=== PATIENT | male | born 1990 | race Caucasian/White ===

== ENCOUNTER 2021-08-06 06:50 | Emergency (ER) | payer OTHER ==
[2021-08-06 06:57] VITALS: TEMP 97.8
[2021-08-06] MEDS ORDERED: IBUPROFEN 600 MG TAB PO STA (07:18)
--- NOTE | 2021-08-06 07:53 | XR ---
EXAMINATION TYPE: XR Hip LT and AP Pelvis DATE OF EXAM: 08/06/2021 COMPARISON: NONE HISTORY: Pain TECHNIQUE: AP view of the pelvis is obtained. Two views of the left hip are obtained. Total of 5 estefanía ges FINDINGS: There is no acute fracture/dislocation evident in the pelvis. The hip and sacroiliac join ts appear symmetric and unremarkable. The overlying soft tissue appears unremarkable. There is some hypertrophic change present at the lateral aspects of the acetabulum bilaterally, also along the femo ral heads there is some prominent remodeling. Two views of left hip show no acute fracture or dislocation. No focal lytic or sclerotic lesion seen in the proximal left femur. The overlying soft tissue is unremarkable. IMPRESSION: There is no acute fracture or dislocation in the pelvis or left hip. Correlate for possi ble acetabular femoral impingement, osteoarthritic changes.
--- NOTE | 2021-08-06 08:31 | ED ---
General Adult HPI - General Chief complaint: Extremity Injury, Lower Stated complaint: hip pain Time Seen by Provider: 08/06/21 07:00 Source: patient Mode of arrival: wheelchair - History of Present Illness Initial comments: 31-year-old male presents to the emergency room for left hip pain. Patient was skating while playing hockey. States that his left leg went out and when he went to corrected something pulled in his left hip. Patient states the external part of his left hip has been hurting him. It is painful to walk on but he can do so. Patient states he is here for an MRI. He denies falling directly on the hip.Patient has no other complaints at this time including shortness of breath, chest pain, abdominal pain, nausea or vomiting, headache, or visual changes. - Related Data Home Medications Medication Instructions Recorded Confirmed Dextroamphetamine/Amphetamine 30 mg PO BID 04/15/14 11/27/15 [Adderall] Previous Rx's Medication Instructions Recorded Cephalexin [Keflex] 500 mg PO Q6HR #40 cap 11/27/15 Ibuprofen [Motrin] 600 mg PO Q6HR PRN #20 tab 08/06/21 Allergies Allergy/AdvReac Type Severity Reaction Status Date / Time No Known Allergies Allergy Verified 08/06/21 06:57 Review of Systems ROS Statement: Those systems with pertinent positive or pertinent negative responses have been documented in the HPI. ROS Other: All systems not noted in ROS Statement are negative. Past Medical History Past Medical History: No Reported History History of Any Multi-Drug Resistant Organisms: None Reported Past Surgical History: No Surgical Hx Reported Past Psychological History: No Psychological Hx Reported Smoking Status: Never smoker Past Alcohol Use History: Occasional Past Drug Use History: Marijuana General Exam General appearance: alert, in no apparent distress Head exam: Present: atraumatic Eye exam: Present: normal appearance, PERRL, EOMI. Absent: scleral icterus, conjunctival injection ENT exam: Present: normal exam, mucous membranes moist Neck exam: Present: normal inspection, full ROM. Absent: tenderness Respiratory exam: Present: normal lung sounds bilaterally. Absent: respiratory distress, wheezes Cardiovascular Exam: Present: regular rate, normal rhythm, normal heart sounds GI/Abdominal exam: Present: soft, normal bowel sounds. Absent: distended, tenderness Extremities exam: Present: tenderness (Tenderness to the lateral aspect of the left hip), normal capillary refill (Capillary refill less than 2 seconds, DP pulse 2+ LLE). Absent: full ROM (Patient has 60 flexion of the left hip, extension to neutral position), other (No evidence of external signs of trauma of the left hip) Neurological exam: Present: alert Course Vital Signs 08/06/21 06:54 Temperature 97.8 F Pulse Rate 85 Respiratory 18 Rate Blood Pressure 108/76 O2 Sat by Pulse 96 Oximetry Medical Decision Making - Medical Decision Making X-ray shows no acute fracture or dislocation. Correlate for acetabular femoral impingement. At this time patient can be discharged home with anti-in flammatories and orthopedic follow-up. Will return here for any worsening symptoms. Disposition Clinical Impression: Hip pain, left Disposition: HOME SELF-CARE Condition: Good Instructions (If sedation given, give patient instructions): Hip Pain (ED) Additional Instructions: Please take Motrin and Tylenol for pain. Ice the hip. Please follow-up with your doctor or orthopedics in one to 2 days. Return to the emergency room for any worsening symptoms. Prescriptions: Ibuprofen [Motrin] 600 mg PO Q6HR PRN #20 tab PRN Reason: Pain Is patient prescribed a controlled substance at d/c from ED?: No Referrals: Aristeo Vanessa MD [Primary Care Provider] - 1-2 days Anders Sears MD [STAFF PHYSICIAN] - 1-2 days Time of Disposition: 08:30
[2021-08-06 08:50] VITALS: BP 104/66; PULSE 78; RESP 20
== END 2021-08-06 08:50 | disposition home or self-care (01) ==
LOC: EC 06:50
DX: M25.552 Pain in left hip (principal)
CPT/HCPCS: 73502; 99283

== ENCOUNTER 2021-09-30 07:10 | Emergency (ER) | payer OTHER ==
--- NOTE | 2021-09-30 08:02 | ED ---
General Adult HPI - General Chief complaint: Syncope Stated complaint: fever/aches Time Seen by Provider: 09/30/21 07:13 Source: patient, EMS, RN notes reviewed Mode of arrival: EMS Limitations: no limitations - History of Present Illness Initial comments: 31-year-old male presents to the emergency room for chief complaint syncope. He went to stand up and passed out. Patient states that he hasn't felt well for the past day or so. States he has been having symptoms of cough and headache as well as fevers. Patient states his girlfriend is positive for COVID-19. Patient states he feels much better at this time thinks he maybe just was a little dehydrated. - Related Data Home Medications Medication Instructions Recorded Confirmed No Known Home Medications 09/30/21 09/30/21 Allergies Allergy/AdvReac Type Severity Reaction Status Date / Time No Known Allergies Allergy Verified 09/30/21 09:17 Review of Systems ROS Statement: Those systems with pertinent positive or pertinent negative responses have been documented in the HPI. ROS Other: All systems not noted in ROS Statement are negative. Past Medical History Past Medical History: No Reported History History of Any Multi-Drug Resistant Organisms: None Reported Past Surgical History: No Surgical Hx Reported Past Psychological History: No Psychological Hx Reported Smoking Status: Never smoker Past Alcohol Use History: Occasional Past Drug Use History: Marijuana General Exam Limitations: no limitations General appearance: alert, in no apparent distress Head exam: Present: atraumatic Eye exam: Present: normal appearance, PERRL, EOMI. Absent: scleral icterus, conjunctival injection ENT exam: Present: normal exam, mucous membranes moist Neck exam: Present: normal inspection, full ROM. Absent: tenderness Respiratory exam: Present: normal lung sounds bilaterally. Absent: respiratory distress, wheezes Cardiovascular Exam: Present: regular rate, normal rhythm, normal heart sounds GI/Abdominal exam: Present: soft, normal bowel sounds. Absent: distended, tenderness Neurological exam: Present: alert Course Vital Signs 09/30/21 09/30/21 09/30/21 07:21 09:00 09:11 Temperature 101 F H 100.3 F H Pulse Rate 74 64 73 Respiratory 18 18 19 Rate Blood Pressure 127/58 121/60 122/67 O2 Sat by Pulse 96 97 97 Oximetry 09/30/21 09/30/21 09/30/21 09:15 09:30 09:45 Temperature Pulse Rate 73 75 64 Respiratory 19 19 18 Rate Blood Pressure 126/71 93/73 105/74 O2 Sat by Pulse 97 96 98 Oximetry 09/30/21 09/30/21 09/30/21 10:00 10:15 10:30 Temperature Pulse Rate 61 70 63 Respiratory 19 18 19 Rate Blood Pressure 113/56 100/61 116/53 O2 Sat by Pulse 97 97 97 Oximetry 09/30/21 10:53 Temperature 98.7 F Pulse Rate Respiratory Rate Blood Pressure O2 Sat by Pulse Oximetry EKG Findings - EKG Comments: EKG Findings:: Normal sinus rhythm, ventricular rate 74, IL interval 172, QTC 419 Medical Decision Making - Medical Decision Making Vitals are stable. Patient presents febrile with a temperature of 101 given Motrin and Tylenol. Patient is well-appearing. CBC and CMP are unremarkable. 19 was detected. Patient was given antibody infusion as well as fluids. Suspect patient's episode of syncope was orthostatic in nature given this happened after he stood up. Patient will be decision to follow-up with primary care. Will return here for any worsening symptoms. - Lab Data Result diagrams: 09/30/21 08:15 09/30/21 08:15 Lab Results 09/30/21 09/30/21 09/30/21 Range/Units 08:15 08:15 08:20 WBC 6.6 (3.8-10.6) k/uL RBC 4.31 (4.30-5.90) m/uL Hgb 13.6 (13.0-17.5) gm/dL Hct 40.0 (39.0-53.0) % MCV 92.8 (80.0-100.0) fL MCH 31.5 (25.0-35.0) pg MCHC 33.9 (31.0-37.0) g/dL RDW 12.2 (11.5-15.5) % Plt Count 147 L (150-450) k/uL MPV 8.2 Neutrophils % 86 % Lymphocytes % 5 % Monocytes % 7 % Eosinophils % 1 % Basophils % 0 % Neutrophils # 5.6 (1.3-7.7) k/uL Lymphocytes # 0.3 L (1.0-4.8) k/uL Monocytes # 0.4 (0-1.0) k/uL Eosinophils # 0.1 (0-0.7) k/uL Basophils # 0.0 (0-0.2) k/uL Sodium 133 L (137-145) mmol/L Potassium 4.4 (3.5-5.1) mmol/L Chloride 105 (98-107) mmol/L Carbon Dioxide 23 (22-30) mmol/L Anion Gap 5 mmol/L BUN 17 (9-20) mg/dL Creatinine 1.21 (0.66-1.25) mg/dL Est GFR (CKD-EPI)AfAm >90 (>60 ml/min/1.73 sqM) Est GFR (CKD-EPI)NonAf 79 (>60 ml/min/1.73 sqM) Glucose 114 H (74-99) mg/dL Calcium 8.7 (8.4-10.2) mg/dL Magnesium 1.9 (1.6-2.3) mg/dL Total Bilirubin 0.5 (0.2-1.3) mg/dL AST 36 (17-59) U/L ALT 33 (4-49) U/L Alkaline Phosphatase 62 (38-126) U/L Total Protein 6.9 (6.3-8.2) g/dL Albumin 3.9 (3.5-5.0) g/dL Coronavirus (PCR) Detected A (Not Detectd) Disposition Clinical Impression: COVID-19, Syncope Disposition: HOME SELF-CARE Condition: Good Instructions (If sedation given, give patient instructions): Coronavirus Disease 2019 (COVID-19) Additional Instructions: Take vitamin C, D, and zinc [id number]. Follow-up with your doctor. Return to the emergency room for any worsening symptoms. Is patient prescribed a controlled substance at d/c from ED?: No Referrals: Aristeo Vanessa MD [Primary Care Provider] - 1-2 days Time of Disposition: 09:07
[2021-09-30] MEDS: IBUPROFEN 600 MG TAB PO STA (08:13)
[2021-09-30] MEDS: SODIUM CHLORIDE 0.9% 1,000 ML IV STA (08:13)
[2021-09-30] MEDS: ACETAMINOPHEN TAB 500 MG TAB PO STA (08:13)
[2021-09-30 08:23] LABS: Basophils % (A) 0 %; Eosinophils # (A) 0.1 k/uL (0-0.7); Eosinophils % (A) 1 %; HGB 13.6 gm/dL (13.0-17.5); Lymphocytes # (A) 0.3 k/uL (1.0-4.8); Lymphocytes % (A) 5 %; MCH 31.5 pg (25.0-35.0); MCHC 33.9 g/dL (31.0-37.0); MCV 92.8 fL (80.0-100.0); Mean Platelet Volume 8.2; Monocytes # (A) 0.4 k/uL (0-1.0); Monocytes % (A) 7 %; Neutrophils # (A) 5.6 k/uL (1.3-7.7); Neutrophils % (A) 86 %; Platelet Count 147 k/uL (150-450); RBC 4.31 m/uL (4.30-5.90); RDW 12.2 % (11.5-15.5); WBC 6.6 k/uL (3.8-10.6)
--- NOTE | 2021-09-30 08:34 | XR ---
EXAMINATION TYPE: XR chest 1V portable DATE OF EXAM: 09/30/2021 COMPARISON: NONE HISTORY: Syncope and fever. TECHNIQUE: Single portable frontal view of the chest is obtained. FINDINGS: There is no suspicious focal air space opacity, pleural effusion, or pneumothorax seen. T he cardiac silhouette size is within normal limits. The osseous structures are intact. Overlying EK G leads. IMPRESSION: No acute process.
[2021-09-30 08:48] LABS: ALT 33 U/L (4-49); AST 36 U/L (17-59); African American GFR (CKD) >90 (>60 ml/min/1.73 sqM); Albumin 3.9 g/dL (3.5-5.0); Alkaline Phosphatase 62 U/L (38-126); Anion Gap 5 mmol/L; Blood Urea Nitrogen 17 mg/dL (9-20); Calcium 8.7 mg/dL (8.4-10.2); Carbon Dioxide 23 mmol/L (22-30); Chloride 105 mmol/L (98-107); Glucose 114 mg/dL (74-99); Magnesium 1.9 mg/dL (1.6-2.3); Non-African American GFR(CKD) 79 (>60 ml/min/1.73 sqM); Potassium 4.4 mmol/L (3.5-5.1); Sodium 133 mmol/L (137-145); Total Bilirubin 0.5 mg/dL (0.2-1.3); Total Protein 6.9 g/dL (6.3-8.2)
[2021-09-30] MEDS: BAMLANIVIMAB (EUA) 700 MG, ETESEVIMAB (EUA) 1,400 MG in SODIUM CHLORIDE 0.9% 100 ML IVPB ONE (09:08)
[2021-09-30] MEDS: SODIUM CHLORIDE 0.9% 50 ML IVPB ONE (09:09)
[2021-09-30] MEDS: cefTRIAXone IN SWFI 1,000 MG/10 ML SYRINGE IVP STA (10:01)
[2021-09-30 10:42] VITALS: BP 116/53; PULSE 63; RESP 19
[2021-09-30 10:54] VITALS: TEMP 98.7
== END 2021-09-30 10:54 | disposition home or self-care (01) ==
LOC: EC 07:10
DX: U07.1 COVID-19 (principal); R55 Syncope and collapse
CPT/HCPCS: 36415; 93005; 80053; 83735; 85025; 87635; 71045; 99284; 96360; J3490

== ENCOUNTER 2023-11-25 07:45 | Emergency (ER) | payer OTHER ==
[2023-11-25] MEDS: BENZONATATE 100 MG CAP PO STA (08:12)
--- NOTE | 2023-11-25 08:12 | ED ---
URI HPI - General Chief Complaint: Upper Respiratory Infection Stated Complaint: cough,fever Time Seen by Provider: 11/25/23 07:58 Source: patient, RN notes reviewed Mode of arrival: ambulatory Limitations: no limitations - History of Present Illness Initial Comments: This is a 33-year-old male who presents to the emergency department for coughing and congestion. Symptoms started 3 days ago. The cough was largely nonproductive to begin with, and is now starting to become wet. However, he is only producing clear phlegm. He has associated body aches, sore throat, nausea, and is now getting minor shortness of breath. Denies any chest pain. Denies any history of asthma or other respiratory illnesses. He has been around friends who tested positive for the flu. MD Complaint: cough, sore throat - Related Data Previous Rx's Medication Instructions Recorded Benzonatate [Tessalon Perle] 200 mg PO TID PRN #30 capsule 11/25/23 Lidocaine Viscous 2% [Xylocaine 5 - 10 ml PO Q4-6H PRN #100 ml 11/25/23 Viscous] Allergies Allergy/AdvReac Type Severity Reaction Status Date / Time No Known Allergies Allergy Verified 11/25/23 07:58 Review of Systems ROS Statement: Those systems with pertinent positive or pertinent negative responses have been documented in the HPI. ROS Other: All systems not noted in ROS Statement are negative. Past Medical History Past Medical History: No Reported History History of Any Multi-Drug Resistant Organisms: None Reported Past Surgical History: No Surgical Hx Reported Past Psychological History: No Psychological Hx Reported Smoking Status: Never smoker Past Alcohol Use History: Occasional Past Drug Use History: Marijuana General Exam Limitations: no limitations General appearance: alert, in no apparent distress Head exam: Present: atraumatic, normocephalic, normal inspection ENT exam: Present: normal oropharynx, mucous membranes moist, TM's normal bilaterally, normal external ear exam Respiratory exam: Present: normal lung sounds bilaterally. Absent: respiratory distress, wheezes, rales, rhonchi, stridor Cardiovascular Exam: Present: regular rate, normal rhythm, normal heart sounds. Absent: systolic murmur, diastolic murmur, rubs, gallop, clicks Neurological exam: Present: alert, oriented X3, CN II-XII intact Psychiatric exam: Present: normal affect, normal mood Skin exam: Present: warm, dry, intact, normal color. Absent: rash Course Vital Signs 11/25/23 11/25/23 11/25/23 07:56 08:09 08:32 Temperature 99 F 100.2 F H Pulse Rate 95 80 Respiratory 20 18 18 Rate Blood Pressure 120/76 O2 Sat by Pulse 99 Oximetry 11/25/23 11/25/23 09:01 09:10 Temperature Pulse Rate 80 84 Respiratory Rate Blood Pressure O2 Sat by Pulse Oximetry Medical Decision Making - Medical Decision Making This is a 33-year-old male who presents to the emergency department for coughing and congestion. Was pt. sent in by a medical professional or institution? @ -No Did you speak to anyone other than the patient for history? @ -No Did you review nursing and triage notes? @ -Yes, and I agree, it is accurate with regards to the patient's symptoms. Were old charts reviewed? @ -No Differential Diagnosis? @ -Differential Cough: Influenza, Covid, RSV, croup, allergic rhinitis, GERD, pneumonia, bronchitis, COPD, viral pharyngitis, streptococcal pharyngitis, this is not meant to be an all-inclusive list. EKG interpreted by me (3pts min.)? @ -Not obtained X-rays interpreted by me (1pt min.)? @ -Chest x-ray obtained, my interpretation identifies no localized consolidations or infiltrates. CT interpreted by me (1pt min.)? @ -Not obtained U/S interpreted by me (1pt. min.)? @ -Not obtained What testing was considered but not performed? (CT, X-rays, U/S, labs)? Why? @ -None What meds were considered but not given? Why? @ -None Did you discuss the management of the patient with other professionals? @ -No Did you reconcile home meds? @ -No Was smoking cessation discussed for >3mins.? @ -I discussed smoking cessation for greater than 3 minutes. The risk of smoking were discussed with the patient including but not limited to risks of cancer, stroke, coronary artery disease and COPD. Also discussed with patient were multiple methods of quitting smoking. Lastly we discussed the financial cost of smoking. Was critical care preformed (if so, how long)? @ -No Were there social determinants of health that impacted care today? How? (Homelessness, low income, unemployed, alcoholism, drug addiction, transportation, low edu. Level, literacy, decrease access to med. care, detention, rehab)? @ -No Was there de-escalation of care discussed even if they declined? (Discuss DNR or withdrawal of care, Hospice)? @ -No What co-morbidities impacted this encounter? (DM, HTN, Smoking, COPD, CAD, Cancer, CVA, Hep., AIDS, mental health diagnosis, sleep apnea, morbid obesity)? @ -Smoking Was patient admitted / discharged? @ -Discharged. Patient positive for influenza A. COVID and RSV testing were negative. Chest x-ray reveals no acute process. Patient requested IV fluids due to feeling dehydrated and he was given a 1L bolus of IV fluids along with Tessalon perles, Tylenol, and a duoneb breathing treatment. He did feel that the medications improved his symptoms. Discussed with the patient that treatment largely consists of symptomatic management. He was given a prescription for Tessalon Perles and viscous lidocaine for management of the cough and sore throat, which he found the most bothersome. Otherwise advised getting plenty of rest and remaining well-hydrated. Patient discharged home in stable condition. Undiagnosed new problem with uncertain prognosis? @ -None Drug Therapy requiring intensive monitoring for toxicity (Heparin, Nitro, Insulin, Cardizem)? @ -None Were any procedures done? @ -None Diagnosis/symptom? @ -Influenza A Acute, or Chronic, or Acute on Chronic? @ -Acute Uncomplicated (without systemic symptoms) or Complicated (systemic symptoms)? @ -Uncomplicated Side effects of treatment? @ -None Exacerbation, Progression, or Severe Exacerbation] @ -Not applicable Poses a threat to life or bodily function? @ -No Return precautions reviewed in depth, the patient is instructed to return to the emergency department with any new, worsening, or concerning symptoms. Patient verbalized understanding. This case was discussed in detail with the attending ED physician, Dr. Yan. Presentation, findings, and treatment plan discussed in detail as well. - Lab Data Lab Results 11/25/23 Range/Units 08:04 Influenza Type A (PCR) Detected A (Not Detectd) Influenza Type B (PCR) Not Detected (Not Detectd) RSV (PCR) Not Detected (Not Detectd) SARS-CoV-2 (PCR) Not Detected (Not Detectd) - Radiology Data Radiology results: report reviewed, image reviewed Disposition Clinical Impression: Nicotine dependence, Influenza A Disposition: HOME SELF-CARE Instructions (If sedation given, give patient instructions): Influenza (ED) Additional Instructions: Return to the emergency department with any new, worsening, or concerning symptoms. You can take the Tessalon Perles up to every 8 hours as needed for coughing. You can use the viscous lidocaine every 4-6 hours to help with the sore throat. Alternate with ibuprofen and Tylenol as needed for fevers and body aches. Make sure that you remain well-hydrated and get plenty of rest. Follow up with your primary care provider in 1-2 days. Prescriptions: Benzonatate [Tessalon Perle] 200 mg PO TID PRN #30 capsule PRN Reason: Cough Lidocaine Viscous 2% [Xylocaine Viscous] 5 - 10 ml PO Q4-6H PRN #100 ml PRN Reason: Sore Throat Is patient prescribed a controlled substance at d/c from ED?: No Referrals: Aristeo Vanessa MD [Primary Care Provider] - 1-2 days Time of Disposition: 09:27
[2023-11-25 08:34] VITALS: RESP 18
[2023-11-25] MEDS: ACETAMINOPHEN TAB 500 MG TAB PO STA (08:35)
[2023-11-25] MEDS: SODIUM CHLORIDE 0.9% 1,000 ML IV STA (08:36)
--- NOTE | 2023-11-25 08:45 | XR ---
EXAMINATION TYPE: XR chest 2V DATE OF EXAM: 11/25/2023 8:32 AM CLINICAL INDICATION:Male, 33 years old with history of Cough, JOSE; COMPARISON: Chest radiographs from 09/30/2021 TECHNIQUE: XR chest 2V Frontal and lateral views of the chest. FINDINGS: Lungs/Pleura: There is no evidence of pleural effusion, focal consolidation, or pneumothorax. Pulmonary vascularity: Unremarkable. Heart/mediastinum: Cardiomediastinal silhouette is unremarkable. Musculoskeletal: No acute osseous pathology. IMPRESSION: No acute cardiopulmonary disease/process.
[2023-11-25] MEDS: IPRATROPIUM-ALBUTEROL 3 ML NEB INHALATION STA (09:01)
[2023-11-25] MEDS: DEXAMETHASONE SOD PHOSPHATE 10 MG/ML 1 ML VIAL IM STA (09:31)
[2023-11-25] MEDS: LIDOCAINE VISCOUS 2% 15 ML CUP PO ONE (09:33)
[2023-11-25] MEDS: ONDANSETRON 4 MG ODT STARTER PACK 2 TAB BTL PO STA (09:33)
[2023-11-25 10:04] VITALS: BP 136/80; PULSE 81; TEMP 99.3
== END 2023-11-25 09:38 | disposition home or self-care (01) ==
LOC: EC 07:45
DX: J10.1 Influenza due to other identified influenza virus with other respiratory manifestations (principal); F17.210 Nicotine dependence, cigarettes, uncomplicated; F12.90 Cannabis use, unspecified, uncomplicated; Z20.822 Contact with and (suspected) exposure to COVID-19
CPT/HCPCS: 94640; 87636; 71046; 99406; 99284; 96360; 96372; J1100; S0119

== ENCOUNTER 2024-04-14 17:28 | Emergency (ER) | payer OTHER ==
[2024-04-14 17:37] VITALS: RESP 20
--- NOTE | 2024-04-14 17:53 | ED ---
Wound/Laceration HPI - General Chief Complaint: Wound/Laceration Stated Complaint: R hand lac Time Seen by Provider: 04/14/24 17:51 Source: patient, RN notes reviewed Mode of arrival: ambulatory Limitations: no limitations - History of Present Illness Initial Comments: 33-year-old male presenting with laceration to right hand 1 hour ago. States he was sliced by a outsewer pipe. Denies blood thinners. Denies other injuries. Last tetanus is unknown. - Related Data Previous Rx's Medication Instructions Recorded Benzonatate [Tessalon Perle] 200 mg PO TID PRN #30 capsule 11/25/23 Lidocaine Viscous 2% [Xylocaine 5 - 10 ml PO Q4-6H PRN #100 ml 11/25/23 Viscous] Cephalexin [Keflex] 500 mg PO Q12HR 5 Days #10 cap 04/14/24 Allergies Allergy/AdvReac Type Severity Reaction Status Date / Time No Known Allergies Allergy Verified 11/25/23 07:58 Review of Systems ROS Statement: Those systems with pertinent positive or pertinent negative responses have been documented in the HPI. ROS Other: All systems not noted in ROS Statement are negative. Past Medical History Past Medical History: No Reported History History of Any Multi-Drug Resistant Organisms: None Reported Past Surgical History: No Surgical Hx Reported Past Psychological History: No Psychological Hx Reported Smoking Status: Never smoker Past Alcohol Use History: Occasional Past Drug Use History: Marijuana General Exam Limitations: no limitations General appearance: alert, in no apparent distress Head exam: Present: atraumatic, normocephalic, normal inspection Right Forearm Wrist exam: Present: normal inspection, full ROM. Absent: tenderness, swelling Hand Wrist exam: Present: full ROM, laceration (3 cm superficial, linear laceration present on dorsal aspect of right hand. No active bleeding. Full range of motion of all digits, cap refill less than 2 seconds, sensation intact.). Absent: tenderness, swelling Vascular: Absent: vascular compromise Course Vital Signs 04/14/24 04/14/24 17:35 18:59 Temperature 98 F 98.1 F Pulse Rate 88 80 Respiratory 20 20 Rate Blood Pressure 100/74 101/76 O2 Sat by Pulse 98 98 Oximetry Procedures - Laceration Laceration #1 Consent Obtained: verbal consent Indication: laceration Site: upper extremity Size (cm): 3 Description: linear Depth: simple, single layer Sedation/Analgesia: none Pre-repair: wound explored, irrigated extensively, deep structures intact Patient Tolerated Procedure: well, no complications Additional Comments: Skin adhesive and Steri-Strips applied to achieve good alignment and homeostasis. Neurovascularly intact status post procedure Medical Decision Making - Medical Decision Making Was pt. sent in by a medical professional or institution (, [facility], HOUSEKEEPING DEPARTMENT WORKER, urgent care, hospital, or shelter...) When possible be specific @ -No Did you speak to anyone other than the patient for history (EMS, parent, family, police, friend...)? What history was obtained from this source @ -No Did you review nursing and triage notes (agree or disagree)? Why? @ -I reviewed and agree with nursing and triage notes Were old charts reviewed (outside hosp., previous admission, EMS record, old EKG, old radiological studies, urgent care reports/EKG's, shelter records)? Report findings @ -No old charts were reviewed Differential Diagnosis (chest pain, altered mental status, abdominal pain women, abdominal pain men, vaginal bleeding, weakness, fever, dyspnea, syncope, headache, dizziness, GI bleed, back pain, seizure, CVA, palpatations, mental health, musculoskeletal)? @ -Differential Musculoskeletal Muscular strain, contusion, ligament sprain, fracture, arthritis, septic arthritis, bursitis, cellulitis, muscle spasm, nerve compression, DVT, arterial occlusion, herpes zoster, electrolyte abnormality, tumor.... This is not meant to be in all inclusive list EKG interpreted by me (3pts min.). @ -None X-rays interpreted by me (1pt min.). @ -None done CT interpreted by me (1pt min.). @ -None done U/S interpreted by me (1pt. min.). @ -None done What testing was considered but not performed or refused? (CT, X-rays, U/S, labs)? Why? @ -Imaging considered but not performed due to low concern for fracture What meds were considered but not given or refused? Why? @ -None Did you discuss the management of the patient with other professionals (professionals i.e. [facility]IL[facility] Thomas, HOUSEKEEPING DEPARTMENT WORKER, lab, RT, psych nurse, high school social studies tutor, bunch maker, teacher, global chief creative officer, social work case manager)? Give summary @ -No Was smoking cessation discussed for >3mins.? @ -No Was critical care preformed (if so, how long)? @ -No Were there social determinants of health that impacted care today? How? (Homeles sness, low income, unemployed, alcoholism, drug addiction, transportation, low edu. Level, literacy, decrease access to med. care, [facility], rehab)? @ -No Was there de-escalation of care discussed even if they declined (Discuss DNR or withdrawal of care, Hospice)? DNR status @ -No What co-morbidities impacted this encounter? (DM, HTN, Smoking, COPD, CAD, Cancer, CVA, ARF, Chemo, Hep., AIDS, mental health diagnosis, sleep apnea, morbid obesity)? @ -None Was patient admitted / discharged? Hospital course, mention meds given and route, prescriptions, significant lab abnormalities, going to OR and other pertinent info. @ -Patient was discharged. Patient was seen and evaluated for right hand laceration prior to arrival. Patient is neurovascularly intact. Tetanus was updated. Wound was thoroughly irrigated and skin adhesive and Steri-Strips were applied. Neurovascularly intact status post procedure. Wound care was discussed. Strict return parameters discussed and patient is agreeable to plan. Prescribed Keflex for antibacterial prophylaxis. Case was discussed with my attending Dr. Yan. Patient discharged in stable condition. Undiagnosed new problem with uncertain prognosis? @ -No Drug Therapy requiring intensive monitoring for toxicity (Heparin, Nitro, Insulin, Cardizem)? @ -No Were any procedures done? @ -Skin adhesive and Steri-Strips to laceration Diagnosis/symptom? @ -Right hand laceration Acute, or Chronic, or Acute on Chronic? @ -Acute Uncomplicated (without systemic symptoms) or Complicated (systemic symptoms)? @ -Uncomplicated Side effects of treatment? @ -No Exacerbation, Progression, or Severe Exacerbation? @ -No Poses a threat to life or bodily function? How? (Chest pain, [place], MA, pneumonia, PE, COPD, DKA, ARF, appy, cholecystitis, CVA, Diverticulitis, Homicidal, Suicidal, threat to staff... and all critical care pts) @ -No Disposition Clinical Impression: Laceration of right hand Disposition: HOME SELF-CARE Condition: Stable Instructions (If sedation given, give patient instructions): Laceration (ED) Additional Instructions: Please return to the Emergency Department if symptoms worsen or any other concerns. Prescriptions: Cephalexin [Keflex] 500 mg PO Q12HR 5 Days #10 cap Is patient prescribed a controlled substance at d/c from ED?: No Referrals: Aristeo Vanessa MD [Primary Care Provider] - 1-2 days Time of Disposition: 18:53
[2024-04-14] MEDS: DIPH,PERTUS(ACELL)TETVAC-LF 0.5 ML VIAL IM ONE (18:11)
[2024-04-14 19:01] VITALS: BP 101/76; PULSE 80; TEMP 98.1
== END 2024-04-14 19:14 | disposition home or self-care (01) ==
LOC: EC 17:28
DX: S61.411A Laceration without foreign body of right hand, initial encounter (principal); F12.90 Cannabis use, unspecified, uncomplicated; Z23 Encounter for immunization; W26.8XXA Contact with other sharp object(s), not elsewhere classified, initial encounter
CPT/HCPCS: 12002; 90471; 90715; 99283